=== PATIENT | male | born 1945 | race Caucasian/White ===

== ENCOUNTER 2016-10-11 11:50 | Emergency (ER) | payer MEDICARE ==
[2016-10-11 12:44] VITALS: BP 150/72
--- NOTE | 2016-10-11 13:45 | UC ---
Skin Complaint HPI - HPI Summary HPI Summary: The patient comes in today for: 1. Rash: Onset: 7 days ago Palliative/provocative: Anti-itch cream and gabapentin which he thinks is helping. Touching make it worse. Quality: Itching, slight shooting pain Region: Lower right back and right groin area. Severity: 2/10 Time: Constant. Associated symptoms: Fevers: None He had the shingles vacccine. * - History of Current Complaint Chief Complaint: UCRash Time Seen by Provider: 10/11/16 13:40 Stated Complaint: RASH Hx Obtained From: Patient - Allergy/Home Medications Allergies/Adverse Reactions: Allergies Allergy/AdvReac Type Severity Reaction Status Date / Time No Known Allergies Allergy Verified 10/11/16 12:44 Home Medications: Home Medications Gabapentin CAP(*) [Neurontin 100 mg CAP(*)] 1 dose PO DAILY PRN 10/11/16 [ History Confirmed 10/11/16] Valsartan/HCTZ 160/12.5(NF) [Diovan HCT 160/12.5 (NF)] 1 tab PO DAILY 10/11/16 [ History Confirmed 10/11/16] Review of Systems Constitutional: Negative Skin: Rash Eyes: Negative ENT: Negative Respiratory: Negative Cardiovascular: Negative Gastrointestinal: Negative Genitourinary: Negative All Other Systems Reviewed And Are Negative: Yes PMH/Surg Hx/FS Hx/Imm Hx Endocrine History Of: Reports: Diabetes Denies: Thyroid Disease, Hyperthyroidism, Hypothyroidism, Dyslipidemia Cardiovascular History Of: Reports: Cardiac Disorders - CAD, he denies any previous SC, bypass, stents, but has a "blocked artery.", Hypertension Denies: Pacemaker/ICD, Myocardial Infarction, Congestive Heart Failure, Atrial Fibrillation, Deep Vein Thrombosis, Bleeding Disorders Respiratory History Of: Denies: COPD, Asthma, Bronchitis, Pneumonia, Pulmonary Embolism GI/ History Of: Denies: Gastroesophageal Reflux, Ulcer, Gastrointestinal Bleed, Gall Bladder Disease, Kidney Stones, Diverticulitis, Renal Disease, Urosepsis Neurological History Of: Reports: Migraine - ocular migraine x1 Denies: TIA, CVA, Dementia, Seizures Psychological History Of: Denies: Anxiety, Depression, Bipolar Disorder, Schizophrenia, Post Traumatic Stress Disorder Cancer History Of: Denies: Lung Cancer, Colorectal Cancer, Breast Cancer, Prostate Cancer, Cervical Cancer Other History Of: Anticoagulant Therapy Negative For: HIV, Hepatitis B - Aspirin daily., Hepatitis C - Surgical History Surgical History: Yes Surgery Procedure, Year, and Place: tonsilectomy in childhood - Family History Known Family History: Positive: Cardiac Disease, Hypertension - Social History Occupation: Retired Alcohol Use: None Substance Use Type: None Smoking Status (MU): Former Smoker - Immunization History Most Recent Influenza Vaccination: 2014 Most Recent Tetanus Shot: 2014 Most Recent Pneumonia Vaccination: 2013 Physical Exam Triage Information Reviewed: Yes Appearance: Well-Appearing, No Pain Distress, Well-Nourished Vital Signs: Initial Vital Signs Temp 98.1 F 10/11/16 12:41 Pulse 78 10/11/16 12:41 Resp 14 10/11/16 12:41 BP 150/72 10/11/16 12:41 Pulse Ox 98 10/11/16 12:41 Vital Signs Reviewed: Yes Eyes: Positive: Conjunctiva Clear. Negative: Discharge ENT: Positive: Hearing grossly normal. Negative: Pharyngeal erythema, Nasal congestion, Nasal drainage, TM bulging, TM dull, TM red, Tonsillar swelling, Tonsillar exudate Dental: Negative: Gross Decay/Caries @, Dental Fracture @ Neck: Positive: Supple, Nontender, No Lymphadenopathy. Negative: Nuchal Rigidity Respiratory: Positive: Chest non-tender, Lungs clear, No respiratory distress, No accessory muscle use. Negative: Crackles, Wheezing Cardiovascular: Positive: RRR, No Murmur Abdomen Description: Positive: Nontender, No Organomegaly, Soft. Negative: Distended, Guarding Musculoskeletal: Positive: Strength Intact, ROM Intact Neurological: Positive: Alert, Muscle Tone Normal Psychological: Positive: Age Appropriate Behavior, Consolable Skin: Negative: rashes, breakdown Course/Dx - Differential Diagnoses - Skin Complaint Differential Diagnoses: Cellulitis, Impetigo - Diagnoses Provider Diagnoses: Shingles Discharge - Discharge Plan Condition: Stable Disposition: HOME Patient Education Materials: Shingles (ED) Additional Instructions: Please see your primary care provider in about a week. If you don't have a primary care provider, please reference the included sheet of local provider. If you get worse, please be seen sooner.
== END 2016-10-11 14:13 | disposition home or self-care (01) ==
LOC: UCCORT 11:50
DX: B02.9 Zoster without complications (principal); I10 Essential (primary) hypertension; Z87.891 Personal history of nicotine dependence
CPT/HCPCS: 99211; G0463